=== PATIENT | male | born 1950 | race Hispanic/Latino ===

== ENCOUNTER 2018-02-18 13:23 | Emergency (ER) | payer MEDICARE ==
[~2018-02-18] VITALS: Ht 160 cm; Wt 90.3 kg
[2018-02-18 16:24] VITALS: BP 141/87
== END 2018-02-18 16:23 | disposition home or self-care (01) ==
LOC: FSED 13:23
DX: R06.09 Other forms of dyspnea (principal); R07.89 Other chest pain; F41.9 Anxiety disorder, unspecified
CPT/HCPCS: 71045; 80053; 82553; 84484; 85025; 93005; 99284

== ENCOUNTER 2020-05-02 13:24 | Observation (INO) | payer MEDICARE, OTHER ==
[~2020-05-02] VITALS: Ht 160 cm; Wt 86.2 kg
--- NOTE | 2020-05-02 13:28 | Emergency Department Note ---
History of Present Illnes History of Present Illness History of Present Illness This is a 70 year old male c/o facial numbness, dizzy last night, went to work out side in the heat but felt weak, exhausted so he is brought to ER by family. Pt walks though ER in mild distress, steady gaits. Past Medical History Hypertension, Diabetes, Hyperlipedemia Past Surgical History: None . Historian: Patient Arrival Mode: Car History limited by: condition of the patient Onset (how long ago): hour(s) Radiation: Reports non-radiation Severity: moderate Duration (how long): hour(s) Progression: waxing and waning Chronicity: new Relieving factors: none Exacerbating factors: none Associated symptoms: Reports malaise, Reports weakness Treatments prior to arrival: none Past Medical/Family History Physician Review I have reviewed the patient's past medical and family history. Any updates have been documented here. Past Medical History Recent Fever: No Clinical Suspicion of Infectio: No New/Unexplained Change in Ment: No Past Medical History: Hypertension, Diabetes, Hyperlipedemia Past Surgical History: None Social History Smoking Cessation: Never Smoker Counseling Performed: No Alcohol Use: None Any Illegal Drug Use: No TB Exposure/Symptoms: No Physically hurt or threatened: No Family History Family history of heart diseas: No Other Last Tetanus: UNK Any Pre-Existing Lines (PICC,: No Review of Systems Review of Systems Constitutional: Reports malaise, Reports weakness EENTM: Reports no symptoms Cardiovascular: Reports no symptoms Respiratory: Reports no symptoms Gastrointestinal: Reports no symptoms Genitourinary: Reports no symptoms Musculoskeletal: Reports no symptoms Integumentary: Reports no symptoms Neurological: Reports as per HPI, Reports numbness, Reports tingling Psychological: Reports no symptoms Endocrine: Reports no symptoms Hematological/Lymphatic: Reports no symptoms Physical Exam Related Data Allergies: Coded Allergies: No Known Allergies (Unverified , 02/18/18) Vital signs reviewed: Yes Physical Exam CONSTITUTIONAL Constitutional: Present well-developed, Present well-nourished, Present obese HENT HENT: Present normocephalic, Present atraumatic, Present oropharynx clear/moist, Present nose normal HENT L/R: Present left ext ear normal, Present right ext ear normal EYES Eyes: Reports PERRL, Reports conjunctivae normal NECK Neck: Present ROM normal PULMONARY Pulmonary: Present effort normal, Present breath sounds normal CARDIOVASCULAR Cardiovascular: Present regular rhythm, Present heart sounds normal, Present capillary refill normal, Present normal rate GASTROINTESTINAL Abdominal: Present soft, Present nontender, Present bowel sounds normal GENITOURINARY Genitourinary: Present exam deferred SKIN Skin: Present warm, Present dry MUSCULOSKELETAL Musculoskeletal: Present ROM normal NEUROLOGICAL Neurological: Present alert, Present oriented x 3, Present no gross motor or sensory deficits PSYCHOLOGICAL Psychological: Present mood/affect normal, Present judgement normal Results Laboratory Lab results reviewed: Yes Laboratory comments Cr 2.4 , unknown baseline Imaging Imaging results reviewed: Yes Imaging Comments no acute Procedures 12 Lead ECG Interpretation ECG Interpretation : ECG: ECG 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
--- NOTE | 2020-05-02 14:16 | Diagnostic Imaging Report ---
Exam: Head CT without contrast History: Tongue and facial numbness. Comparison studies: None Technique: Axial images were obtained from the skull base to the vertex. Coronal and sagittal images reconstructed from the axial data. Dose modulation, iterative reconstruction, and/or weight based adjustment of the mA/kV was utilized to reduce the radiation dose to as low as reasonably achievable. Radiation dose: Total DLP: 969.14 mGy*cm. Estimated effective dose: DLP x 0.015 Intravenous contrast: None Findings: Scalp: Incidental nonaggressive-appearing 9 mm circumscribed lesion in the left paramedian frontal scalp, possibly epidermal inclusion cyst. No other abnormalities. Bones: No fractures, blastic or lytic lesions. Brain sulci: Mildly prominent. Ventricles: Mild compensatory dilatation a few subtle hypodensities in the supratentorial white matter are nonspecific but are most compatible with chronic microvascular ischemic changes.. No hydrocephalus. Extra-axial spaces: No masses, no fluid collection. Parenchyma: No abnormal densities. No masses, hemorrhage, acute or chronic vascular insults. Sellar/suprasellar region: No abnormalities. Craniocervical junction: Patent foramen magnum. No Chiari one malformation. Incidental findings: Atherosclerotic calcifications in the carotid siphons and intradural vertebral arteries. IMPRESSION: No acute intracranial abnormalities. Chronic findings: 1. Mild generalized parenchymal volume loss. 2. Mild chronic microvascular ischemic changes. Signed by: Dr. Evaristo Cao M.D. on 05/02/2020 2:12 PM
[2020-05-02] MEDS ORDERED: SODIUM CHLORIDE 0.9% 1000ML 1,000 ML IV STA ×2 (14:18→18:04)
[2020-05-02] MEDS ORDERED: DIPHENHYDRAMINE HCL INJ 50 MG/ML VIAL IV PRN (14:30)
[2020-05-02] MEDS ORDERED: ENALAPRILAT IV INJ 1.25 MG/ML VIAL IV PRN (14:30)
[2020-05-02] MEDS ORDERED: ACETAMINOPHEN 325 MG TAB PO PRN (14:30)
[2020-05-02] MEDS ORDERED: ONDANSETRON HCL INJ 2MG/ML 2ML 2 MG/ML VIAL IV PRN (14:30)
[2020-05-02] MEDS ORDERED: CLONIDINE HCL 0.1 MG TAB PO PRN (14:30)
--- NOTE | 2020-05-02 14:40 | NUR ---
[facility] NOTIFIED OF NEED, ETA 25 MINUTES
--- NOTE | 2020-05-02 15:18 | NUR ---
RCD PT FROM [facility] BY EMS PT IS ALERT AND ORIENTED VITALS CHECKED , PT RESTING ON BED NO SIGNS OF ANY DISTRESS NOTED ,ADMISSION ASSESSMENT AND HISTORY DONE ,INSTRUCTED THE PATIENT REGARDING HOSPITAL POLICY ,SPECIALLY VISITING POLICY BED LOW AND LOCKED CALL LIGHT IN REACH
--- NOTE | 2020-05-02 16:00 | NUR ---
PT WENT TO PROCEDURE IN SAFE CONDITION
[2020-05-02 16:02] VITALS: BP 148/71
[2020-05-02 16:46] VITALS: BP 148/71
--- NOTE | 2020-05-02 16:48 | Diagnostic Imaging Report ---
MRI BRAIN WO HISTORY: Tongue and facial numbness, weakness COMPARISON: Head CT 05/02/2020 TECHNIQUE: Sagittal T2, axial T2, axial T1, axial T2/FLAIR, axial gradient echo (or susceptibility weighted), coronal T2/FLAIR, and axial diffusion weighted MR images of the brain were obtained without contrast. Motion artifacts obscure some details. DISCUSSION: Scalp/bone marrow: Small nodular subcutaneous scalp lesion adjacent to the left coronal suture may be an inclusion cyst. Otherwise, unremarkable. Brain sulci: Prominent. Ventricles: Compensatory dilatation. Extra-axial spaces: No masses or fluid collections. Parenchyma: Scattered T2/FLAIR hyperintense foci throughout the supratentorial white matter are likely chronic microvascular ischemic changes. Otherwise, no mass, hemorrhage, or acute vascular insults. Vessels: Normal flow voids in major arteries and veins. Sellar/Suprasellar region: No abnormalities. Craniocervical junction: No abnormalities. Incidental findings: Left ocular lens replacement. IMPRESSION: 1. No acute intracranial abnormalities. 2. Mild supratentorial chronic microvascular ischemic change. 3. Mild generalized cerebral volume loss. Signed by: Dr. Baldomero Hartmann M.D. on 05/02/2020 4:44 PM
[2020-05-02 17:43] LABS: CREATINE KINASE MB 5.9 ng/mL (0-5.0)
--- NOTE | 2020-05-02 18:56 | NUR ---
PT RESTING ON BED BED SIDE REPORT GIVEN TO ONCOMING NURSE
--- NOTE | 2020-05-02 19:30 | NUR ---
BEDSIDE SHIFT REPORT RECEIVED FROM DAY RN. PT IS COOPERATIVE. MED LIST REVIEWED. 20 G PIV INFUSING IN LEFT ARM.PT VOID PER URINAL. URINE CLEAR YELLOW.BED IN LOW POSITION. PT IS ALERT AND ORIENTED X3PT DENIES PAIN.. CALL LIGHT WITHIN REACH. BED REMAINS IN LOW POSITION.
[2020-05-02 20:00] VITALS: BP 135/67
[2020-05-02 21:00] VITALS: BP 135/67
[2020-05-03] VITALS: BP 126/64
[2020-05-03] MEDS ORDERED: SODIUM CHLORIDE 0.9% 1000ML 1,000 ML IV SCH
--- NOTE | 2020-05-03 01:32 | History and Physical ---
PRIMARY CARE DOCTOR: Manuel Lee MD. CHIEF COMPLAINT: Facial numbness. HISTORY OF PRESENT ILLNESS: This is a 70-year-old male, who is still working outside. This week has been hot. The patient has been sweating a lot. Finally last night, he noticed that he had bilateral facial numbness. The patient was dizzy and was unsteady on his gait, therefore he presented to the emergency room. He denies any chest pain, shortness of breath per se. No nausea, vomiting. Never had anything like this before. The patient does take aspirin every day. PAST MEDICAL AND SURGICAL HISTORY: Diabetes, hypertension. MEDICATIONS: Please see medication reconciliation form. ALLERGIES: NONE. SOCIAL HISTORY: He does not smoke. FAMILY HISTORY: No diabetes. REVIEW OF SYSTEMS: A 10-point review of system obtained and nothing else is significant other than what is stated in HPI. PHYSICAL EXAMINATION: VITAL SIGNS: Temperature 98.5, pulse 65, respiratory rate 20, blood pressure 135/67. GENERAL: No acute distress. SKIN: No rash. HEENT: Anicteric. Oropharynx is clear. LUNGS: Clear. HEART: Regular rate and rhythm. Normal S1, S2. GI: Abdomen is soft, nondistended, nontender. NEUROLOGIC: Alert and oriented x3. Cranial nerves II through XII grossly intact. PSYCHIATRIC: No hallucination. MUSCULOSKELETAL: Painless range of motion in joints. LABORATORY DATA: Laboratory childs: Covid-19 is still pending. White count 7.1, hemoglobin 11.6, platelet count 233. Troponins negative. Creatine kinase is 248. BUN is 43, creatinine is 2.4, bicarb is 16. Head CT did not show any acute disease. ASSESSMENT AND PLAN: 1. Likely dehydration with acute kidney injury. We will continue IV fluid. At this time, doubt this being a TIA or acute stroke. I would get a MRI of the brain just to be sure. Again, we will continue hydration and repeat creatinine in the morning. 2. Diabetes. We will put on sliding scale. 3. Hypertension. At this time, stable. We will continue to monitor. 4. Gastrointestinal and deep vein thrombosis prophylaxes. Low risk, not indicated. 5. Disposition. Most likely can go home tomorrow, if his creatinine is better. Yiching MD RERE Mata/CAR /[id number] cc: [facility]
[2020-05-03 02:29] LABS: CREATINE KINASE MB 4.3 ng/mL (0-5.0)
[2020-05-03 04:00] VITALS: BP 139/69
[2020-05-03] MEDS ORDERED: ASA (05:36)
[2020-05-03] MEDS ORDERED: BUMETANIDE (05:41)
[2020-05-03] MEDS ORDERED: ENALAPRIL MALEA20 MG PO (06:00)
[2020-05-03] MEDS ORDERED: GLIMEPIRIDE2 MG PO (06:04)
[2020-05-03] MEDS ORDERED: METOPROLOL TART25 MG PO (06:09)
[2020-05-03] MEDS ORDERED: INSULIN ASPART SC (06:09)
[2020-05-03] MEDS ORDERED: INSULIN GLARGINE SC (06:09)
[2020-05-03] MEDS ORDERED: OMEPRAZOLE PO (06:11)
[2020-05-03 07:05] LABS: ANION GAP 9.7 mmol/L (8-16); CALCIUM 8.3 mg/dL (8.4-10.2); CREATININE, SERUM 1.46 mg/dL (0.72-1.25); POTASSIUM 4.7 mmol/L (3.5-5.1)
[2020-05-03 07:30] VITALS: BP 136/68
[2020-05-03] MEDS ORDERED: INSULIN LISPRO 100 UNIT/1 ML 3ML VIAL SQ SCH (07:30)
--- NOTE | 2020-05-03 07:30 | NUR ---
PT IN BED RESTING NO S/S DISCOMFORT,DENIES PAIN,NEUROS INTACT.
--- NOTE | 2020-05-03 08:00 | NUR ---
GLUCOSE 50 ,GAVE PT APPLE JUICE AND SUGAR,WILL RECHECK GLUCOSE
[2020-05-03 08:23] VITALS: BP 136/68
[2020-05-03] MEDS ORDERED: ASPIRIN 325 MG TAB PO SCH (09:00)
--- NOTE | 2020-05-03 09:30 | NUR ---
GLUCOSE RECHECKED AT 139
[2020-05-03 12:02] VITALS: BP 139/68
[2020-05-03] MEDS ORDERED: TESSALON PERLE100 MG PO (15:33)
[2020-05-03 16:20] VITALS: BP 151/67
--- NOTE | 2020-05-03 17:25 | NUR ---
PT DISCHARGED HOME ,IV DCD WITH OUT REDNESS OR SWELLING,INSTRUCTIONS AND PRESCRIPTIONS GIVEN COPY ON CHART.TRANSPORTED TO AUTO .
--- NOTE | 2020-05-04 00:13 | Discharge Summary ---
PRIMARY CARE DOCTOR: Dr. Manuel Lee. FINAL DIAGNOSIS: Dehydration with acute kidney acute kidney injury. SECONDARY DIAGNOSES: 1. Diabetes. 2. Hypertension. 3. Dyslipidemia. PROCEDURES/STUDIES PERFORMED: Both MRI of the brain and head CT did not show any acute disease. CONSULTANTS: None. HISTORY: Per dictated H and P. HOSPITAL COURSE: The patient was hydrated. His creatinine improved significantly. The patient's symptoms have resolved. The patient did not have a stroke nor a TIA. The patient will follow up with his primary care doctor in one week. The patient was seen and examined today. Yiching MD RERE Mata/CAR /[id number] cc: [facility]
--- NOTE | 2020-05-07 11:39 | NUR ---
I was called by lab saying his covid came back positive. I informed his pcp Dr. Manuel Lee. I called the patient at [phone], no answer and unable to leave a voicemail either.
== END 2020-05-03 17:24 | disposition home or self-care (01) ==
LOC: FSED 14:00 → ERHOLD 14:21 → MED/SURG 15:22
PROVIDERS: ADMIT Internal Medicine; ATTEND Internal Medicine
DX: N17.9 Acute kidney failure, unspecified (principal); E86.0 Dehydration; I10 Essential (primary) hypertension; E11.9 Type 2 diabetes mellitus without complications; X30.XXXA Exposure to excessive natural heat, initial encounter; E78.5 Hyperlipidemia, unspecified
CPT/HCPCS: 36415; 70450; 70551; 80048; 80053; 82550 ×2; 82553 ×2; 82948 ×2; 84484 ×2; 93005; 93306; 93880; 99284; G0378 ×2; J7030 ×2; U0002

== ENCOUNTER 2021-12-17 12:14 | Inpatient (IN) | payer MEDICARE ==
[2021-12-17] VITALS (10 sets, daily range): BP systolic 95–125; BP diastolic 58–64
[~2021-12-17] VITALS: Ht 160 cm; Wt 96.2 kg
[~2021-12-17 12:14] MED LIST: ASA; BUMETANIDE; ENALAPRIL MALEA20 MG PO; GLIMEPIRIDE2 MG PO; INSULIN ASPART SC; INSULIN GLARGINE SC; METOPROLOL TART25 MG PO; OMEPRAZOLE PO; TESSALON PERLE100 MG PO
[2021-12-17] MEDS ORDERED: ASPIRIN 81 MG CHEW TAB PO STA (12:16)
[2021-12-17 12:36] LABS: BASOPHILS # (AUTO) 0.1 (0.0-0.1); BASOPHILS % 0.4 % (0.0-1.0); EOSINOPHILS # (AUTO) 0.1 (0.0-0.4); EOSINOPHILS % 0.7 % (0.0-6.0); HEMATOCRIT 36.9 % (38.2-49.6); HEMOGLOBIN 12.6 g/dL (14.0-18.0); LYMPHOCYTES # (AUTO) 1.6 (1.0-3.2); LYMPHOCYTES % 8.8 % (18.0-39.1); MEAN CORPUSCULAR HEMOGLOBIN 31.3 pg (28-32); MEAN CORPUSCULAR HGB CONC 34.1 g/dL (31-35); MEAN CORPUSCULAR VOLUME 91.8 fL (81-99); MONOCYTES # (AUTO) 2.5 (0.2-0.8); MONOCYTES % 13.6 % (4.4-11.3); NEUTROPHILS # (AUTO) 13.9 (2.1-6.9); NEUTROPHILS % 75.4 % (38.7-80.0); PLATELET COUNT 217 x10e3/uL (140-360); RED BLOOD COUNT 4.02 x10e6/uL (4.3-5.7); RED CELL DISTRIBUTION WIDTH 12.6 % (11.7-14.4)
[2021-12-17] MEDS ORDERED: HEPARIN SOD (PORCINE) 1000 UNIT/ML 30ML ONE (12:39)
[2021-12-17] MEDS ORDERED: MIDAZOLAM HCL 2 MG/2 ML VIAL ONE (12:40)
[2021-12-17] MEDS ORDERED: LIDOCAINE HCL 2% LOCAL 20 ML VIAL ONE (12:40)
[2021-12-17] MEDS ORDERED: IOPAMIDOL 370 MG/ML 200 ML INFUS..BTL INJ ONE (12:40)
[2021-12-17] MEDS ORDERED: HEPARIN SOD/SOD CHLORIDE 2,000 ML ONE (12:40)
[2021-12-17] MEDS ORDERED: SODIUM CHLORIDE 0.9% 1000ML 1,000 ML ONE (12:40)
[2021-12-17] MEDS ORDERED: NITROGLYCERIN/D5W 200 MCG/ML 250 ML ONE (12:40)
[2021-12-17] MEDS ORDERED: FENTANYL CITRATE/PF 100MCG/2 ML INJ ONE (12:40)
[2021-12-17 12:50] LABS: INR 1.01; PROTHROMBIN TIME 14.2 seconds (11.9-14.5)
[2021-12-17 12:51] LABS: PARTIAL THROMBOPLASTIN TIME 27.8 seconds (23.8-35.5)
[2021-12-17 12:58] LABS: ALBUMIN 3.4 g/dL (3.5-5.0); ALBUMIN/GLOBULIN RATIO 0.9 (0.8-2.0); ANION GAP 12.9 mmol/L (8-16); CALCIUM 9.1 mg/dL (8.4-10.2); CREATININE, SERUM 1.84 mg/dL (0.72-1.25); POTASSIUM 4.9 mmol/L (3.5-5.1)
[2021-12-17 13:07] LABS: CREATINE KINASE MB 1.4 ng/mL (0-5.0)
[2021-12-17] MEDS ORDERED: HYDROCODONE/APAP 5MG-325MG TAB PO PRN (13:45)
[2021-12-17] MEDS ORDERED: OMEPRAZOLE 20 MG CAP PO PRN (13:45)
[2021-12-17] MEDS ORDERED: Morphine 2mg Syringe 2 MG/ML SYR IV PRN (13:45)
[2021-12-17] MEDS ORDERED: SODIUM CHLORIDE 0.9% 1000ML 1,000 ML IV SCH (13:45)
[2021-12-17] MEDS ORDERED: ONDANSETRON HCL INJ 2MG/ML 2ML 2 MG/ML VIAL IV PRN (13:45)
[2021-12-17] MEDS ORDERED: DEXTROSE 50% SYRINGE 50 ML IV PRN (14:15)
[2021-12-17] MEDS: ACETAMINOPHEN 325 MG TAB PO PRN ×2 (15:28→21:41)
[2021-12-17] MEDS: INSULIN REGULAR, HUMAN 100 UNIT/1 ML SQ SCH ×2 (15:45→21:12)
[2021-12-17] MEDS: INSULIN LISPRO 100 UNIT/1 ML 3ML VIAL SQ SCH ×2 (16:30→21:00)
[2021-12-17] MEDS: METOPROLOL TARTRATE 25 MG TAB PO SCH (17:49)
[2021-12-17] MEDS ORDERED: INSULIN GLARGINE 100 UNITS/ML VIAL SQ SCH (21:00)
[2021-12-17] MEDS ORDERED: ATORVASTATIN 20 MG TAB PO SCH (21:00)
[2021-12-17] MEDS ORDERED: ZOLPIDEM TARTRATE 5 MG TAB PO PRN (21:00)
[2021-12-18] MEDS: INSULIN LISPRO 100 UNIT/1 ML 3ML VIAL SQ SCH ×2 (00:01→09:13)
[2021-12-18 05:09] VITALS: BP 126/76
[2021-12-18 05:59] LABS: BASOPHILS % 0.4 % (0.0-1.0); EOSINOPHILS # (AUTO) 0.2 (0.0-0.4); EOSINOPHILS % 1.8 % (0.0-6.0); HEMATOCRIT 35.3 % (38.2-49.6); HEMOGLOBIN 11.8 g/dL (14.0-18.0); LYMPHOCYTES # (AUTO) 1.1 (1.0-3.2); LYMPHOCYTES % 11.8 % (18.0-39.1); MEAN CORPUSCULAR HEMOGLOBIN 31.1 pg (28-32); MEAN CORPUSCULAR HGB CONC 33.4 g/dL (31-35); MEAN CORPUSCULAR VOLUME 92.9 fL (81-99); MONOCYTES # (AUTO) 1.7 (0.2-0.8); MONOCYTES % 17.2 % (4.4-11.3); NEUTROPHILS # (AUTO) 6.5 (2.1-6.9); NEUTROPHILS % 67.5 % (38.7-80.0); PLATELET COUNT 170 x10e3/uL (140-360); RED CELL DISTRIBUTION WIDTH 12.4 % (11.7-14.4)
[2021-12-18 06:16] LABS: % IRON SATURATION 22 % (15-50); ALBUMIN 2.8 g/dL (3.5-5.0); ALBUMIN/GLOBULIN RATIO 0.8 (0.8-2.0); ANION GAP 10.2 mmol/L (8-16); CALCIUM 8.7 mg/dL (8.4-10.2); CHOL/HDL RATIO 3.8 (3.9-4.7); CREATININE, SERUM 1.64 mg/dL (0.72-1.25); IRON 38 ug/dL (65-175); POTASSIUM 4.2 mmol/L (3.5-5.1); TOTAL IRON BINDING CAPACITY 175 ug/dL (261-478); TRANSFERRIN 125 mg/dL (174-364)
[2021-12-18] MEDS: INSULIN REGULAR, HUMAN 100 UNIT/1 ML SQ SCH ×2 (07:30→12:01)
[2021-12-18 07:42] VITALS: BP 132/67
[2021-12-18 07:43] VITALS: BP 132/67
[2021-12-18] MEDS ORDERED: ASPIRIN 325 MG TAB PO SCH (09:00)
[2021-12-18] MEDS: METOPROLOL TARTRATE 25 MG TAB PO SCH (09:12)
[2021-12-18 11:15] VITALS: BP 123/58
[2021-12-18] MEDS ORDERED: ENOXAPARIN SOD INJ 40 MG/0.4 ML SYR SC SCH (11:15)
[2021-12-18] MEDS ORDERED: LIPITOR20 MG PO (12:20)
[2021-12-18] MEDS ORDERED: PLAVIX75 MG PO (12:20)
[2021-12-18] MEDS ORDERED: ONDANSETRON HCL 4 MG ORAL DISINTEGRATING TAB PO PRN (13:00)
[2021-12-19] MEDS ORDERED: CLOPIDOGREL BISULFATE 75 MG TAB PO SCH (09:00)
== END 2021-12-18 13:50 | disposition home or self-care (01) | DRG 287 ==
LOC: ER 12:34 → ERHOLD 12:37 → CATH LAB V 13:44 → MED/SURG3 15:09
PROVIDERS: ADMIT Internal Medicine; ATTEND Internal Medicine
PROC: 4A023N7 Measurement of Cardiac Sampling and Pressure, Left Heart, Percutaneous Approach (ICD-10-PCS; principal; 2021-12-17)
PROC: B2111ZZ Fluoroscopy of Multiple Coronary Arteries using Low Osmolar Contrast (ICD-10-PCS; 2021-12-17)
PROC: B2151ZZ Fluoroscopy of Left Heart using Low Osmolar Contrast (ICD-10-PCS; 2021-12-17)
DX: I25.10 Atherosclerotic heart disease of native coronary artery without angina pectoris (principal); N17.9 Acute kidney failure, unspecified; E78.5 Hyperlipidemia, unspecified; D72.829 Elevated white blood cell count, unspecified; E11.22 Type 2 diabetes mellitus with diabetic chronic kidney disease; I13.10 Hypertensive heart and chronic kidney disease without heart failure, with stage 1 through stage 4 chronic kidney disease, or unspecified chronic kidney disease; N18.30 Chronic kidney disease, stage 3 unspecified; E78.00 Pure hypercholesterolemia, unspecified; Z79.4 Long term (current) use of insulin; Z79.84 Long term (current) use of oral hypoglycemic drugs; Z20.822 Contact with and (suspected) exposure to COVID-19
CPT/HCPCS: 36415; 71045; 80053; 80061; 82550; 82553; 82948; 83540; 83880; 84466; 84484; 85025; 85379; 85610; 85730; 93005; 93306; 93458; 94799; 99152; 99153; 99284; C1760; C1769; C1887; J1644; J1815; J1817; J2001; J2250; J3010; J7030; Q9967; U0002

== ENCOUNTER 2022-07-12 19:55 | Observation (INO) | payer MEDICARE, OTHER ==
[~2022-07-12] VITALS: Ht 160 cm; Wt 96.2 kg
[~2022-07-12 19:55] MED LIST changes: -ASA; +ASA PO; +LIPITOR20 MG PO; +PLAVIX75 MG PO
[2022-07-12] MEDS ORDERED: ASPIRIN 325 MG TAB PO ONE (20:05)
[2022-07-12] MEDS ORDERED: SODIUM CHLORIDE FLUSH 10 ML SYR IV PRN (20:05)
[2022-07-12 20:27] LABS: BASOPHILS # (AUTO) 0.1 (0.0-0.1); BASOPHILS % 0.5 % (0.0-1.0); EOSINOPHILS # (AUTO) 0.5 (0.0-0.4); EOSINOPHILS % 5.1 % (0.0-6.0); HEMOGLOBIN 11.8 g/dL (14.0-18.0); LYMPHOCYTES # (AUTO) 1.4 (1.0-3.2); LYMPHOCYTES % 13.3 % (18.0-39.1); MEAN CORPUSCULAR HEMOGLOBIN 31.1 pg (28-32); MEAN CORPUSCULAR HGB CONC 32.8 g/dL (31-35); MEAN CORPUSCULAR VOLUME 94.7 fL (81-99); MONOCYTES % 9.8 % (4.4-11.3); NEUTROPHILS # (AUTO) 7.2 (2.1-6.9); NEUTROPHILS % 69.9 % (38.7-80.0); PLATELET COUNT 210 x10e3/uL (140-360); RED CELL DISTRIBUTION WIDTH 12.7 % (11.7-14.4)
[2022-07-12 20:32] LABS: INR 0.92; PARTIAL THROMBOPLASTIN TIME 27.6 seconds (23.8-35.5); PROTHROMBIN TIME 13.2 seconds (11.9-14.5)
[2022-07-12 20:39] LABS: ALANINE AMINOTRANSFERASE 28 IU/L (0-55); ALBUMIN 3.6 g/dL (3.5-5.0); ALBUMIN/GLOBULIN RATIO 0.9 (0.8-2.0); ALKALINE PHOSPHATASE 123 IU/L (40-150); ANION GAP 14.2 mmol/L (8-16); BLOOD UREA NITROGEN 33 mg/dL (7-26); BUN/CREATININE RATIO 17 (6-25); CALCIUM 8.8 mg/dL (8.4-10.2); CARBON DIOXIDE 17 mmol/L (22-29); CHLORIDE 107 mmol/L (98-107); CREATININE, SERUM 1.94 mg/dL (0.72-1.25); LIPASE 35 U/L (8-78); POTASSIUM 5.2 mmol/L (3.5-5.1); SODIUM 133 mmol/L (136-145)
[2022-07-12 20:43] LABS: GLUCOSE 415 mg/dL (74-118)
[2022-07-12 21:26] LABS: CLARITY,URINE CLEAR (CLEAR); COLOR,URINE STRAW (YELLOW)
[2022-07-12 21:27] LABS: KETONES,URINE NEGATIVE (NEGATIVE); LEUKOCYTE ESTERASE ,URINE NEGATIVE (NEGATIVE); NITRITE,URINE NEGATIVE (NEGATIVE); PROTEIN,URINE DIPSTICK 1+ (NEGATIVE); URINE UROBILINOGEN 0.2 mg/dL (0.2 - 1)
[2022-07-12 21:43] LABS: WBC,URINE (MAN) 0-5 /HPF (0-5)
[2022-07-12 21:44] LABS: EPITHELIAL CELLS,URINE FEW /LPF; MUCUS,URINE FEW (RARE)
[2022-07-12] MEDS ORDERED: INSULIN REGULAR, HUMAN 100 UNIT/1 ML SQ ONE (22:00)
[2022-07-12] MEDS ORDERED: INSULIN REGULAR, HUMAN 100 UNIT/1 ML ONE (22:11)
[2022-07-12] MEDS ORDERED: DEXTROSE 50% SYRINGE 50 ML IV PRN (23:45)
[2022-07-12] MEDS ORDERED: ASPIRIN 81 MG CHEW TAB PO ONE (23:45)
[2022-07-12] MEDS ORDERED: ONDANSETRON HCL INJ 2MG/ML 2ML 2 MG/ML VIAL IV PRN (23:45)
[2022-07-13] VITALS (11 sets, daily range): BP systolic 138–171; BP diastolic 62–74
[2022-07-13 05:48] LABS: BASOPHILS # (AUTO) 0.1 (0.0-0.1); BASOPHILS % 0.7 % (0.0-1.0); EOSINOPHILS # (AUTO) 0.6 (0.0-0.4); EOSINOPHILS % 6.2 % (0.0-6.0); HEMATOCRIT 34.7 % (38.2-49.6); HEMOGLOBIN 11.7 g/dL (14.0-18.0); LYMPHOCYTES # (AUTO) 1.4 (1.0-3.2); LYMPHOCYTES % 15.1 % (18.0-39.1); MEAN CORPUSCULAR HEMOGLOBIN 30.5 pg (28-32); MEAN CORPUSCULAR HGB CONC 33.7 g/dL (31-35); MEAN CORPUSCULAR VOLUME 90.6 fL (81-99); MONOCYTES % 10.6 % (4.4-11.3); NEUTROPHILS % 66.2 % (38.7-80.0); PLATELET COUNT 192 x10e3/uL (140-360); RED BLOOD COUNT 3.83 x10e6/uL (4.3-5.7); RED CELL DISTRIBUTION WIDTH 12.5 % (11.7-14.4)
[2022-07-13 06:15] LABS: CREATINE KINASE 89 IU/L (30-200)
[2022-07-13 06:16] LABS: ALBUMIN 3.5 g/dL (3.5-5.0); ANION GAP 13.4 mmol/L (8-16); CALCIUM 8.8 mg/dL (8.4-10.2); CREATININE, SERUM 1.62 mg/dL (0.72-1.25); POTASSIUM 4.4 mmol/L (3.5-5.1)
[2022-07-13] MEDS ORDERED: VASOTEC10 M1 PO (09:22)
[2022-07-13] MEDS ORDERED: GLYCOPYRROLATE PO (09:25)
[2022-07-13] MEDS ORDERED: ATORVASTATIN CA20 MG PO (09:27)
[2022-07-13] MEDS ORDERED: NEURONTIN300 MG PO (09:28)
[2022-07-13] MEDS ORDERED: LEXAPRO20 MG PO (09:28)
[2022-07-13] MEDS ORDERED: FAMOTIDINE20 MG PO (09:30)
[2022-07-13] MEDS: INSULIN REGULAR, HUMAN 100 UNIT/1 ML SQ SCH ×4 (09:44→20:23)
[2022-07-13] MEDS ORDERED: ONDANSETRON HCL INJ 2MG/ML 2ML 2 MG/ML VIAL IV PRN (10:00)
[2022-07-13] MEDS ORDERED: ACETAMINOPHEN 325 MG TAB PO PRN (10:00)
[2022-07-13] MEDS: METOPROLOL SUCCINATE 25 MG TAB XL PO SCH (12:04)
[2022-07-13] MEDS: CLOPIDOGREL BISULFATE 75 MG TAB PO SCH (12:04)
[2022-07-13] MEDS: ASPIRIN 81 MG ENTERIC COATED PO SCH (12:04)
[2022-07-13] MEDS: ISOSORBIDE MONONITRATE 30 MG TAB CR PO SCH (12:04)
[2022-07-13 16:28] LABS: CREATINE KINASE 75 IU/L (30-200)
[2022-07-13] MEDS: GLIMEPIRIDE 2 MG TAB PO SCH (17:21)
[2022-07-13] MEDS: RANOLAZINE 500 MG TABSR PO SCH (17:22)
[2022-07-13] MEDS ORDERED: FAMOTIDINE 20 MG TAB PO SCH (21:00)
[2022-07-13] MEDS ORDERED: ATORVASTATIN 40 MG TAB PO SCH (21:00)
[2022-07-13] MEDS ORDERED: ATORVASTATIN 20 MG TAB PO SCH (21:00)
[2022-07-14] VITALS: BP 127/63
[2022-07-14 04:00] VITALS: BP 156/79
[2022-07-14] MEDS: INSULIN REGULAR, HUMAN 100 UNIT/1 ML SQ SCH (07:30)
[2022-07-14 08:19] VITALS: BP 154/75
[2022-07-14 08:35] VITALS: BP 154/75
[2022-07-14] MEDS ORDERED: ESCITALOPRAM OXALATE 10 MG TAB PO SCH (09:00)
[2022-07-14] MEDS: CLOPIDOGREL BISULFATE 75 MG TAB PO SCH (09:38)
[2022-07-14] MEDS: RANOLAZINE 500 MG TABSR PO SCH (09:38)
[2022-07-14] MEDS: ASPIRIN 81 MG ENTERIC COATED PO SCH (09:38)
[2022-07-14] MEDS: ISOSORBIDE MONONITRATE 30 MG TAB CR PO SCH (09:39)
[2022-07-14] MEDS: METOPROLOL SUCCINATE 25 MG TAB XL PO SCH (09:40)
[2022-07-14] MEDS: GLIMEPIRIDE 2 MG TAB PO SCH (09:40)
[2022-07-14] MEDS ORDERED: Isosorbide Mononitrate PO (09:51)
[2022-07-14] MEDS ORDERED: RANEXA500 MG PO (09:51)
== END 2022-07-14 10:38 | disposition home or self-care (01) ==
LOC: ER 20:01 → ERHOLD 23:51 → MED/SURG 07-13 00:59
PROVIDERS: ADMIT Internal Medicine; ATTEND Internal Medicine
DX: R07.9 Chest pain, unspecified (principal); E11.65 Type 2 diabetes mellitus with hyperglycemia; E11.22 Type 2 diabetes mellitus with diabetic chronic kidney disease; E78.5 Hyperlipidemia, unspecified; I25.2 Old myocardial infarction; E78.00 Pure hypercholesterolemia, unspecified; I12.9 Hypertensive chronic kidney disease with stage 1 through stage 4 chronic kidney disease, or unspecified chronic kidney disease; N18.32 Chronic kidney disease, stage 3b; I25.10 Atherosclerotic heart disease of native coronary artery without angina pectoris; Z83.3 Family history of diabetes mellitus; Z79.82 Long term (current) use of aspirin; Z79.84 Long term (current) use of oral hypoglycemic drugs; Z20.822 Contact with and (suspected) exposure to COVID-19
CPT/HCPCS: 0223U; 36415 ×3; 70551; 71045; 72050; 80053 ×2; 81001; 82550; 82553; 82948 ×3; 83690; 84484 ×2; 85025 ×2; 85610; 85730; 93005; 93306; 93880; 97161; 99284; G0378 ×3; J1817 ×2